=== PATIENT | female | born 1990 | race African-American/Black ===

== ENCOUNTER 2021-12-29 12:55 | Emergency (ER) | payer SELFPAY ==
[~2021-12-29] VITALS: Ht 172.7 cm; Wt 70.3 kg
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
--- NOTE | 2021-12-29 13:41 | NUR ---
URINE COLLECTED AND SENT
[2021-12-29] MEDS ORDERED: NAPR-1164 PO (15:07)
[2021-12-29] MEDS ORDERED: CYCL10TA9 PO (15:07)
[2021-12-29] MEDS ORDERED: LIDO30AD10 TP (15:07)
--- NOTE | 2021-12-29 15:16 | NUR ---
Patient discharged to home in stable condition. Written and verbal after care instructions given. Patient verbalizes understanding of instruction.
[2021-12-29 15:18] VITALS: BP 120/76
== END 2021-12-29 15:18 | disposition home or self-care (01) ==
LOC: ER 13:00
DX: S16.1XXA Strain of muscle, fascia and tendon at neck level, initial encounter (principal); Z60.2 Problems related to living alone; Z79.899 Other long term (current) drug therapy; V49.49XA Driver injured in collision with other motor vehicles in traffic accident, initial encounter; Y93.89 Activity, other specified; Y92.413 State road as the place of occurrence of the external cause; Y99.8 Other external cause status
CPT/HCPCS: 84703-TC